=== PATIENT | female | born 1990 | race Caucasian/White ===

== ENCOUNTER 2017-04-21 18:41 | Emergency (ER) | payer MEDICAID ==
[2017-04-21 20:22] LABS: URINE BILIRUBIN NEGATIVE (NEGATIVE); URINE BLOOD LARGE (NEGATIVE); URINE GLUCOSE (UA) NEGATIVE (NEGATIVE); URINE KETONE NEGATIVE (NEGATIVE); URINE PH 8.5 (4.6 - 8.0); URINE PROTEIN 30 mg/dL (NEGATIVE)
[2017-04-21 20:24] LABS: URINE COLOR YELLOW
[2017-04-21 20:27] LABS: URINE RBC 50-100 /hpf (0-5)
[2017-04-21 20:28] LABS: URINE AMORPHOUS SEDIMENT MODERATE PHOSPHATES (NONE SEEN); URINE BACTERIA FEW /hpf (NONE SEEN); URINE EPITHELIAL CELLS NONE SEEN /lpf (FEW)
--- NOTE | 2017-04-21 20:35 | ED Physician Chart ---
Chief Complaint/HPI - Patient Information Date Seen:: 04/21/17 Time Seen:: 20:20 Chief Complaint:: right flank pain History of Present Illness:: patient developed right flank pain about 1 hr ago. Vomited four times. No diarrhea. No prior similar episodes. No chills or fever. Cannot find a comfortable position. Allergies:: Allergies Allergy/AdvReac Type Severity Reaction Status Date / Time No Known Allergies Allergy Verified 04/21/17 19:21 Vitals:: Vital Signs - 8 hr 04/21/17 19:10 Temp 98.5 F HR 61 RR 16 BP 135/86 O2 Sat % 99 Historian:: Patient Review:: Nurse's Note Reviewed Review of Systems - Review of Systems General/Constitutional: No fever, No chills Skin: No skin lesions Head: No headache Eyes: No loss of vision ENT: No earache Neck: No neck pain, No swelling Cardio Vascular: No chest pain, No palpitations Pulmonary: No SOB GI: Nausea, Vomiting G/U: No dysuria Musculoskeletal: No bone or joint pain Endocrine: No polyuria, No polydipsia Psychiatric: No prior psych history Past Medical History - Past Medical History Past Medical History: No significant medical hx Family History: Diabetes [place] Social History: Non Smoker, No Alcohol Surgical History: None Psychiatricy History: None Medication: None Physical Exam - Physical Examination General/Constitutional: Well-developed, well-nourished, Alert Other Gen/Cons comments:: moderate distress Head: Atraumatic Eyes: Lids, conjuctiva normal, PERRL Skin: Nl inspection, No rash, No skin lesions, No ecchymosis ENMT: External ears, nose nl Neck: No nuchal rigidity Respiratory: Nl effort/Exclusion, Clear to Auscultation, No Wheeze/Rhonchi/Rales Cardio Vascular: RRR GI: No tenderness/rebounding/guarding Extremities: No edema Neuro/Psych: No focal deficits Other Misc comments:: right flank tenderness Labs/Radiology/EKG Results - Lab Results Results: Laboratory Tests 04/21/17 04/21/17 19:20 19:20 Urine Source CLEAN C Urine Color YELLOW Urine Clarity CLOUDY H Urine pH 8.5 Ur Specific [place] 1.020 Urine Protein 30 H Urine Glucose (UA) NEGATIVE Urine Ketones NEGATIVE Urine Blood LARGE H Urine Nitrate NEGATIVE Urine Bilirubin NEGATIVE Urine Urobilinogen 1.0 Ur Leukocyte Esterase SMALL H Urine RBC 50-100 H Urine WBC 2-5 Ur Epithelial Cells NONE SEEN Amorphous Sediment MODERATE PHOSPHATES Urine Bacteria FEW Urine Test NEGATIVE - Radiology Results Results: mild right hydronephrosis; Pelvic ultrasound showed large 6k-7 cm right ovarian cyst. Assessment - Assessment General Assessment: right ovarian cyst is most likely an incidental finding. Patient's pain probably from a right ureteral calculus. ED Septic Shock - . Is Septic Shock (SBP<90, OR Lactate>4 mmol\L) present?: No - <6hrs of presentation: Vital Signs: Vital Signs - 8 hr 04/21/17 19:10 Temp 98.5 F HR 61 RR 16 BP 135/86 O2 Sat % 99 Reassessment (Disposition) - Reassessment Reassessment Condition:: Unchanged - Diagnosis Diagnosis:: right ureteral calculus; right ovarian cyst. - Aftercare/Follow up Instructions Medication Prescribed:: [place] 10/325 #12 Sig 1 QID PRN - Patient Disposition Discharge/Transfer:: Home Condition at Disposition:: Stable, Improved
[2017-04-21] MEDS ORDERED: HYDROmorphone 1 mg/mL 1mL Syr IVP STA (22:09)
[2017-04-21] MEDS ORDERED: HYDROmorphone 1 mg/mL 1mL Syr ONE (22:23)
--- NOTE | 2017-04-22 09:35 | Diagnostic Imaging Report ---
Exam: Renal ultrasound. HISTORY: Hydronephrosis. Findings: Real-time ultrasound summation kidneys performed planes. The study demonstrates right kidney measuring 10.2 x 5.6 x 5.4 submitted diameter with the prominence of the right renal pelvis mild hydronephrosis cannot be excluded The left kidney measures 11.5 x 5.8 x 5.1 cm diameter. There is no evidence of obstructive uropathy or nephrolithiasis. The urinary bladder was not imaged. IMPRESSION: Mild prominence of the right renal pelvis mild hydronephrosis cannot be excluded.
--- NOTE | 2017-04-22 09:39 | Diagnostic Imaging Report ---
Exam: Pelvic ultrasound. HISTORY: Ovarian cysts. Findings: Real-time ultrasound examination of pelvis was performed utilizing transvaginal technique. The study demonstrates normal echogenicity uterus measuring 8.1 x 4.1 x 4.6 centimeters with endometrial thickness 8 mm. No free fluid is noted in cul-de-sac. There is evidence of for large right adnexal ovarian mass measuring 7.2 x 6.7 x 3 6 cm diameter which might represent hemorrhagic cyst however pathology cannot be excluded. The right ovary measures 3.7 x 2.7 x 2.4 m diameter. Left ovary measures 3.7 x 2.2 x 2.4 cm diameter, contains a 2.8 x 2.7 cm cyst. IMPRESSION: 1. Right adnexal mass most likely right ovarian hemorrhagic cyst other pathology cannot be excluded measuring 7.2 x 6.7 x 6.3 cm diameter. Clinical correlation follow-up is recommended. CT examination of pelvis might be helpful. 2. Left ovarian cyst measuring 2.8 x 2.7 cm diameter.
== END 2017-04-22 00:15 | disposition home or self-care (01) ==
LOC: ER 18:41
DX: N83.201 Unspecified ovarian cyst, right side (principal); N20.1 Calculus of ureter; E11.9 Type 2 diabetes mellitus without complications
CPT/HCPCS: 99285; 96374; 96375; 76770; 76856; 81001; 81025; Q0162; J1885; J2405; J1170